=== PATIENT | male | born 1965 | race Two or more races ===

== ENCOUNTER 2022-02-06 11:07 | Inpatient (IN) | payer MEDICARE, MEDICAID ==
[~2022-02-06] VITALS: Ht 167.6 cm; Wt 68.0 kg
[2022-02-06] VITALS (9 sets, daily range): BP systolic 128–163; BP diastolic 78–99
[2022-02-06] MEDS ORDERED: SODIUM CHLORIDE 0.9% 1,000 ML IV ONE ×2 (11:45)
[2022-02-06 12:29] LABS: Basophils # (auto) 0.1 10 ^3/uL (0-0.2); Eosinophils # (auto) 0.1 10 ^3/uL (0-0.8); Monocytes # (auto) 0.4 10 ^3/uL (0-1.3); Nucleated Red Blood Cells % 0.1 %
[2022-02-06 12:32] LABS: Basophils % (auto) 0.8 % (0.0-2.0); Lymphocytes % (auto) 13.5 % (10.0-50.0); Mean Corpuscular Hgb Conc. 32.6 g/dL (32.0-36.0); Mean Corpuscular Volume 70.4 fL (80.0-100.0); Monocytes % (auto) 4.9 % (0.0-12.0); Neutrophils # (auto) 5.8 10 ^3/uL (1.6-8.6); Neutrophils % (auto) 78.8 % (37.0-80.0); Red Blood Cells 2.41 10^6/uL (4.5-5.90); Red Cell Distribution Width 19.6 % (11.8-14.3); White Blood Cell 7.4 10^3/uL (4.4-10.8)
[2022-02-06 12:38] LABS: Hemoglobin 5.5 g/dL (13.5-17.5)
[2022-02-06 12:50] LABS: BUN/Creatinine Ratio 17.8; Calcium 8.1 mg/dL (8.5-10.1); Magnesium 2.4 mg/dL (1.6-2.6); Potassium 5.2 mmol/L (3.5-5.1)
[2022-02-06 12:53] LABS: Bilirubin, Total 0.3 mg/dL (0.2-1.0); Total Protein 8.2 g/dL (6.4-8.2)
[2022-02-06 13:04] LABS: INR 1.21 (0.9-1.15); Partial Thromboplastin Time 35.5 sec (23.6-33.0)
[2022-02-06] MEDS: SODIUM CHLORIDE 0.9% 1,000 ML IV SCH ×2 (16:20→22:46)
[2022-02-06 18:10] LABS: Urine Bacteria FEW /hpf (None Seen); Urine Blood TRACE /uL (Negative); Urine Mucus FEW (None Seen); Urine WBC 4 /hpf (0 - 3)
[2022-02-06 18:12] LABS: Alcohol, Urine < 3.0 mg/dL (0-10); Amphetamine Screen, Urine NEGATIVE (NEGATIVE); Barbiturate Scree,Urine NEGATIVE (NEGATIVE); Benzodiazephine Screen, Urine NEGATIVE (NEGATIVE); Cocaine Screen, Urine NEGATIVE (NEGATIVE); Opiate Scree,Urine NEGATIVE (NEGATIVE); Phencyclidine Screen, Urine NEGATIVE (NEGATIVE)
[2022-02-06 18:32] LABS: Cannabinoid Screen, Urine NEGATIVE (NEGATIVE)
[2022-02-06] MEDS: METOPROLOL TARTRATE 25 MG TAB PO SCH (22:46)
[2022-02-07] MEDS ORDERED: METF-370 PO (01:02)
[2022-02-07] MEDS ORDERED: COLC1TAB3 PO (01:02)
[2022-02-07 05:12] VITALS: BP 143/88
[2022-02-07 05:26] LABS: Basophils # (auto) 0.1 10 ^3/uL (0-0.2); Basophils % (auto) 1.4 % (0.0-2.0); Eosinophils # (auto) 0.2 10 ^3/uL (0-0.8); Eosinophils % (auto) 2.3 % (0.0-7.0); Hematocrit 25.4 % (41.0-53.0); Hemoglobin 8.3 g/dL (13.5-17.5); Lymphocytes # (auto) 0.9 10 ^3/uL (0.4-5.4); Lymphocytes % (auto) 14.1 % (10.0-50.0); Mean Corpuscular Hemoglobin 24.8 pg (28.0-32.0); Mean Corpuscular Hgb Conc. 32.9 g/dL (32.0-36.0); Mean Corpuscular Volume 75.4 fL (80.0-100.0); Monocytes # (auto) 0.3 10 ^3/uL (0-1.3); Monocytes % (auto) 4.9 % (0.0-12.0); Neutrophils % (auto) 77.3 % (37.0-80.0); Nucleated Red Blood Cells % 0.1 %; Red Blood Cells 3.37 10^6/uL (4.5-5.90); White Blood Cell 6.5 10^3/uL (4.4-10.8)
[2022-02-07 05:40] LABS: Potassium 4.9 mmol/L (3.5-5.1)
[2022-02-07 05:44] LABS: Albumin 1.9 g/dL (3.4-5.0); BUN/Creatinine Ratio 18.5
[2022-02-07 05:47] LABS: Bilirubin, Total 0.5 mg/dL (0.2-1.0); Total Protein 7.7 g/dL (6.4-8.2)
[2022-02-07] MEDS: SODIUM CHLORIDE 0.9% 1,000 ML IV SCH (07:55)
[2022-02-07 08:00] VITALS: BP 137/87
[2022-02-07 08:30] VITALS: BP 137/87
[2022-02-07] MEDS: ZINC SULFATE 220mg CAP or TAB PO SCH (10:15)
[2022-02-07] MEDS: METOPROLOL TARTRATE 25 MG TAB PO SCH (10:15)
[2022-02-07 12:40] VITALS: BP 141/87
[2022-02-07 16:20] VITALS: BP 134/80
[2022-02-07] MEDS ORDERED: SODIUM BICARBONATE 50ML VIAL 75 ML in D5W 5% 1,000 ML IV SCH (16:45)
[2022-02-07] MEDS ORDERED: FUROSEMIDE 40 MG/4 ML VIAL IV ONE (16:45)
[2022-02-07] MEDS: DOBUTamine 1000MCG/ML 250 ML IV SCH (18:09)
[2022-02-07 21:44] LABS: Urine Bacteria NONE SEEN /hpf (None Seen); Urine Blood Negative /uL (Negative); Urine WBC 1 /hpf (0 - 3)
[2022-02-07] MEDS: CARVEDILOL 12.5 MG TAB PO SCH (21:56)
[2022-02-07 22:00] VITALS: BP 136/58
[2022-02-07 22:02] LABS: Protein, Urine 190.5 mg/dL (0.0-11.9)
[2022-02-07] MEDS: SODIUM BICARBONATE 50ML VIAL 75 ML in D5W 5% 1,000 ML IV SCH (22:16)
[2022-02-07 22:32] LABS: Creatinine, Urine 35.2 mg/dL (30.0-125.0)
[2022-02-08] VITALS (7 sets, daily range): BP systolic 107–133; BP diastolic 59–77
[2022-02-08] MEDS: SODIUM BICARBONATE 50ML VIAL 75 ML in D5W 5% 1,000 ML IV SCH ×3 (03:58→23:25)
[2022-02-08 09:10] LABS: Basophils # (auto) 0 10 ^3/uL (0-0.2); Basophils % (auto) 0.3 % (0.0-2.0); Eosinophils # (auto) 0.3 10 ^3/uL (0-0.8); Eosinophils % (auto) 3.5 % (0.0-7.0); Hematocrit 23.3 % (41.0-53.0); Hemoglobin 7.7 g/dL (13.5-17.5); Lymphocytes # (auto) 0.9 10 ^3/uL (0.4-5.4); Lymphocytes % (auto) 10.5 % (10.0-50.0); Mean Corpuscular Hemoglobin 24.2 pg (28.0-32.0); Mean Corpuscular Hgb Conc. 33.1 g/dL (32.0-36.0); Mean Corpuscular Volume 73.2 fL (80.0-100.0); Monocytes # (auto) 0.4 10 ^3/uL (0-1.3); Monocytes % (auto) 4.6 % (0.0-12.0); Neutrophils # (auto) 6.7 10 ^3/uL (1.6-8.6); Neutrophils % (auto) 81.1 % (37.0-80.0); Nucleated Red Blood Cells % 0.2 %; Red Blood Cells 3.18 10^6/uL (4.5-5.90); White Blood Cell 8.3 10^3/uL (4.4-10.8)
[2022-02-08 09:11] LABS: Red Cell Distribution Width 21.2 % (11.8-14.3)
[2022-02-08 09:28] LABS: Calcium 6.8 mg/dL (8.5-10.1); Potassium 4.9 mmol/L (3.5-5.1)
[2022-02-08 09:30] LABS: BUN/Creatinine Ratio 19.6
[2022-02-08] MEDS: ZINC SULFATE 220mg CAP or TAB PO SCH (09:50)
[2022-02-08] MEDS: CARVEDILOL 12.5 MG TAB PO SCH ×2 (09:50→22:30)
[2022-02-08] MEDS: DOBUTamine 1000MCG/ML 250 ML IV SCH ×2 (16:00→23:26)
[2022-02-09] MEDS: SODIUM BICARBONATE 50ML VIAL 75 ML in D5W 5% 1,000 ML IV SCH ×2 (02:10→09:06)
[2022-02-09 05:02] LABS: Basophils # (auto) 0 10 ^3/uL (0-0.2); Basophils % (auto) 0.6 % (0.0-2.0); Eosinophils # (auto) 0.3 10 ^3/uL (0-0.8); Eosinophils % (auto) 3.5 % (0.0-7.0); Hematocrit 19.8 % (41.0-53.0); Hemoglobin 7.1 g/dL (13.5-17.5); Lymphocytes # (auto) 0.8 10 ^3/uL (0.4-5.4); Lymphocytes % (auto) 9.8 % (10.0-50.0); Mean Corpuscular Hemoglobin 26.2 pg (28.0-32.0); Mean Corpuscular Hgb Conc. 35.7 g/dL (32.0-36.0); Mean Corpuscular Volume 73.4 fL (80.0-100.0); Monocytes # (auto) 0.5 10 ^3/uL (0-1.3); Monocytes % (auto) 5.7 % (0.0-12.0); Neutrophils # (auto) 6.6 10 ^3/uL (1.6-8.6); Neutrophils % (auto) 80.4 % (37.0-80.0); Nucleated Red Blood Cells % 0.2 %; White Blood Cell 8.2 10^3/uL (4.4-10.8)
[2022-02-09 05:18] VITALS: BP 130/79
[2022-02-09 05:22] LABS: Red Cell Distribution Width 20.9 % (11.8-14.3)
[2022-02-09 05:42] LABS: Calcium 6.4 mg/dL (8.5-10.1); Magnesium 1.9 mg/dL (1.6-2.6); Potassium 4.7 mmol/L (3.5-5.1)
[2022-02-09 05:44] LABS: BUN/Creatinine Ratio 20.6
[2022-02-09 09:00] VITALS: BP 112/56
[2022-02-09] MEDS: ZINC SULFATE 220mg CAP or TAB PO SCH (09:05)
[2022-02-09] MEDS: CARVEDILOL 12.5 MG TAB PO SCH ×2 (09:06→21:36)
[2022-02-09 12:39] VITALS: BP 143/80
[2022-02-09] MEDS ORDERED: FUROSEMIDE 40 MG/4 ML VIAL IV ONE (15:00)
[2022-02-09] MEDS ORDERED: DEXTROSE (50%) 50ML SYRG IV PRN (15:30)
[2022-02-09 17:20] VITALS: BP 118/76
[2022-02-09] MEDS: ACCU-CHEK COMFORT CURVE STRIP VI SCH ×2 (17:35→21:36)
[2022-02-09] MEDS: InsuLIN REG 1unit/0.01ml Soln (100units/ml) SC SCH ×2 (17:37→21:47)
[2022-02-09 22:00] VITALS: BP 124/72
[2022-02-10] VITALS (14 sets, daily range): BP systolic 100–125; BP diastolic 57–82
[2022-02-10] MEDS: InsuLIN REG 1unit/0.01ml Soln (100units/ml) SC SCH ×4 (07:00→22:43)
[2022-02-10] MEDS: ACCU-CHEK COMFORT CURVE STRIP VI SCH ×5 (07:10→22:43)
[2022-02-10 08:25] LABS: BUN/Creatinine Ratio 19.1; Calcium 6.7 mg/dL (8.5-10.1); Potassium 4.7 mmol/L (3.5-5.1)
[2022-02-10] MEDS: ERGOCALCIFEROL 50,000 UNIT(1.25MG) CAP PO SCH (09:15)
[2022-02-10] MEDS: CARVEDILOL 12.5 MG TAB PO SCH ×2 (10:35→22:44)
[2022-02-10] MEDS ORDERED: LIDOCAINE 2%HCL (LOCAL ANESTH.) INJ 10ml MDV ONE (13:26)
[2022-02-10] MEDS ORDERED: fentaNYL CITRATE 100 MCG/2 ML VL ONE (13:37)
[2022-02-10] MEDS ORDERED: HEPARIN SODIUM (PORCINE) 5000 UNITS/ML 1ML VIAL ONE (13:38)
[2022-02-10] MEDS ORDERED: MIDAZOLAM HCL 2MG/2ML 2ml VIAL (1mg/ml) ONE (13:38)
[2022-02-10] MEDS: SODIUM FERR GLUC 62.5MG/5ML 125 MG in SODIUM CHL 0.9% 100 ML IV SCH (15:13)
[2022-02-10] MEDS: DOBUTamine 1000MCG/ML 250 ML IV SCH (15:14)
[2022-02-11] VITALS (8 sets, daily range): BP systolic 103–126; BP diastolic 57–75
[2022-02-11 05:52] LABS: Basophils # (auto) 0 10 ^3/uL (0-0.2); Basophils % (auto) 0.4 % (0.0-2.0); Eosinophils # (auto) 0 10 ^3/uL (0-0.8); Lymphocytes # (auto) 0.4 10 ^3/uL (0.4-5.4); Monocytes # (auto) 0.5 10 ^3/uL (0-1.3); Monocytes % (auto) 6.5 % (0.0-12.0); Neutrophils # (auto) 7.4 10 ^3/uL (1.6-8.6); White Blood Cell 8.4 10^3/uL (4.4-10.8)
[2022-02-11 05:53] LABS: Eosinophils % (auto) 0.4 % (0.0-7.0); Hematocrit 20.6 % (41.0-53.0); Lymphocytes % (auto) 4.7 % (10.0-50.0); Mean Corpuscular Hemoglobin 25.1 pg (28.0-32.0); Mean Corpuscular Hgb Conc. 33.7 g/dL (32.0-36.0); Mean Corpuscular Volume 74.6 fL (80.0-100.0); Red Blood Cells 2.76 10^6/uL (4.5-5.90)
[2022-02-11 05:54] LABS: Red Cell Distribution Width 22.2 % (11.8-14.3)
[2022-02-11 05:58] LABS: Hemoglobin 6.9 g/dL (13.5-17.5)
[2022-02-11 06:00] LABS: Albumin 1.8 g/dL (3.4-5.0); Calcium 6.6 mg/dL (8.5-10.1); Potassium 5.5 mmol/L (3.5-5.1)
[2022-02-11 06:05] LABS: Bilirubin, Total 0.4 mg/dL (0.2-1.0); Total Protein 6.5 g/dL (6.4-8.2)
[2022-02-11] MEDS: InsuLIN REG 1unit/0.01ml Soln (100units/ml) SC SCH ×4 (07:00→22:00)
[2022-02-11] MEDS: ACCU-CHEK COMFORT CURVE STRIP VI SCH ×4 (07:05→23:16)
[2022-02-11] MEDS ORDERED: ACCU-CHEK COMFORT CURVE STRIP VI ONE (07:15)
[2022-02-11] MEDS: CARVEDILOL 12.5 MG TAB PO SCH ×2 (09:28→23:16)
[2022-02-11] MEDS ORDERED: LACTULOSE 20Gm/30ML SOLN PO PRN (11:00)
[2022-02-11] MEDS: guaiFENesin-DM 100/10mg/5ml SYR PO PRN (18:57)
[2022-02-12 05:00] VITALS: BP 131/81
[2022-02-12 05:58] LABS: Basophils # (auto) 0 10 ^3/uL (0-0.2); Eosinophils # (auto) 0.1 10 ^3/uL (0-0.8); Hematocrit 21.2 % (41.0-53.0)
[2022-02-12 06:01] LABS: Basophils % (auto) 0.5 % (0.0-2.0); Hemoglobin 7.2 g/dL (13.5-17.5); Lymphocytes # (auto) 0.6 10 ^3/uL (0.4-5.4); Lymphocytes % (auto) 9.4 % (10.0-50.0); Mean Corpuscular Hemoglobin 26.1 pg (28.0-32.0); Mean Corpuscular Hgb Conc. 34.2 g/dL (32.0-36.0); Mean Corpuscular Volume 76.2 fL (80.0-100.0); Monocytes # (auto) 0.6 10 ^3/uL (0-1.3); Neutrophils # (auto) 5.3 10 ^3/uL (1.6-8.6); Neutrophils % (auto) 79.1 % (37.0-80.0); Nucleated Red Blood Cells % 0.1 %; Red Blood Cells 2.77 10^6/uL (4.5-5.90); White Blood Cell 6.7 10^3/uL (4.4-10.8)
[2022-02-12 06:03] LABS: Red Cell Distribution Width 21.5 % (11.8-14.3)
[2022-02-12 06:10] LABS: Calcium 7.1 mg/dL (8.5-10.1); Potassium 4.1 mmol/L (3.5-5.1)
[2022-02-12 06:12] LABS: BUN/Creatinine Ratio 17.8
[2022-02-12] MEDS: InsuLIN REG 1unit/0.01ml Soln (100units/ml) SC SCH ×4 (06:43→22:00)
[2022-02-12 08:30] VITALS: BP 112/68
[2022-02-12] MEDS: CARVEDILOL 12.5 MG TAB PO SCH ×2 (10:00→21:55)
[2022-02-12] MEDS: ACCU-CHEK COMFORT CURVE STRIP VI SCH ×3 (11:30→21:56)
[2022-02-12 12:30] VITALS: BP 142/79
[2022-02-12] MEDS ORDERED: HEPARIN 1,000 UNITS/ml 1ML VIAL IV PRN (13:15)
[2022-02-12] MEDS: SODIUM FERR GLUC 62.5MG/5ML 125 MG in SODIUM CHL 0.9% 100 ML IV SCH (13:56)
[2022-02-12] MEDS: DOBUTamine 1000MCG/ML 250 ML IV SCH (14:30)
[2022-02-12 17:00] VITALS: BP 132/73
[2022-02-12 18:33] LABS: Hematocrit 23.1 % (41.0-53.0); Hemoglobin 7.7 g/dL (13.5-17.5)
[2022-02-12 22:00] VITALS: BP 136/72
[2022-02-12 22:12] LABS: Hemoglobin 7.2 g/dL (13.5-17.5)
[2022-02-13 05:00] VITALS: BP 130/71
[2022-02-13 05:44] LABS: Eosinophils # (auto) 0.2 10 ^3/uL (0-0.8); Hemoglobin 7.1 g/dL (13.5-17.5); Neutrophils % (auto) 76.1 % (37.0-80.0)
[2022-02-13 05:47] LABS: Basophils # (auto) 0 10 ^3/uL (0-0.2); Basophils % (auto) 0.5 % (0.0-2.0); Eosinophils % (auto) 2.5 % (0.0-7.0); Hematocrit 21.2 % (41.0-53.0); Lymphocytes # (auto) 0.8 10 ^3/uL (0.4-5.4); Lymphocytes % (auto) 11.3 % (10.0-50.0); Mean Corpuscular Hemoglobin 25.8 pg (28.0-32.0); Mean Corpuscular Hgb Conc. 33.5 g/dL (32.0-36.0); Mean Corpuscular Volume 76.9 fL (80.0-100.0); Monocytes # (auto) 0.7 10 ^3/uL (0-1.3); Monocytes % (auto) 9.6 % (0.0-12.0); Neutrophils # (auto) 5.3 10 ^3/uL (1.6-8.6); Red Blood Cells 2.76 10^6/uL (4.5-5.90); White Blood Cell 6.9 10^3/uL (4.4-10.8)
[2022-02-13 05:54] LABS: Albumin 1.5 g/dL (3.4-5.0); Calcium 7.1 mg/dL (8.5-10.1); Potassium 3.7 mmol/L (3.5-5.1)
[2022-02-13 06:00] LABS: BUN/Creatinine Ratio 13.6; Bilirubin, Total 0.3 mg/dL (0.2-1.0); Total Protein 6.2 g/dL (6.4-8.2)
[2022-02-13] MEDS: InsuLIN REG 1unit/0.01ml Soln (100units/ml) SC SCH ×4 (07:00→21:34)
[2022-02-13] MEDS: ACCU-CHEK COMFORT CURVE STRIP VI SCH ×4 (07:02→21:23)
[2022-02-13 08:17] LABS: % Iron Saturation 12.7 % (20-55)
[2022-02-13 08:54] VITALS: BP 128/69
[2022-02-13 09:22] LABS: Hepatitis B Surface Antibody Positive (Negative)
[2022-02-13 10:00] LABS: Hepatitis A Total Antibody Positive (Negative)
[2022-02-13] MEDS: CARVEDILOL 12.5 MG TAB PO SCH ×2 (10:40→21:22)
[2022-02-13] MEDS: SODIUM FERR GLUC 62.5MG/5ML 125 MG in SODIUM CHL 0.9% 100 ML IV SCH (12:21)
[2022-02-13 13:00] VITALS: BP 134/87
[2022-02-13 13:17] LABS: Hepatitis C Antibody Negative (Negative)
[2022-02-13 16:52] VITALS: BP 111/69
[2022-02-13] MEDS: FUROSEMIDE 20 MG/2 ML VIAL IV SCH (18:53)
[2022-02-13 22:00] VITALS: BP 129/81
[2022-02-14 05:00] VITALS: BP 119/69
[2022-02-14] MEDS: FUROSEMIDE 20 MG/2 ML VIAL IV SCH ×2 (05:51→17:45)
[2022-02-14] MEDS: InsuLIN REG 1unit/0.01ml Soln (100units/ml) SC SCH ×4 (06:31→22:06)
[2022-02-14] MEDS: ACCU-CHEK COMFORT CURVE STRIP VI SCH ×4 (06:32→22:02)
[2022-02-14 06:56] LABS: BUN/Creatinine Ratio 14.1; Calcium 7.4 mg/dL (8.5-10.1); Magnesium 2.1 mg/dL (1.6-2.6); Potassium 4.9 mmol/L (3.5-5.1)
[2022-02-14 07:47] LABS: Basophils # (auto) 0 10 ^3/uL (0-0.2); Basophils % (auto) 0.5 % (0.0-2.0); Eosinophils # (auto) 0 10 ^3/uL (0-0.8); Eosinophils % (auto) 0.3 % (0.0-7.0); Hematocrit 23.5 % (41.0-53.0); Hemoglobin 7.8 g/dL (13.5-17.5); Lymphocytes # (auto) 0.6 10 ^3/uL (0.4-5.4); Mean Corpuscular Hemoglobin 25.7 pg (28.0-32.0); Monocytes # (auto) 0.5 10 ^3/uL (0-1.3); Monocytes % (auto) 5.8 % (0.0-12.0); Neutrophils # (auto) 7.6 10 ^3/uL (1.6-8.6); Neutrophils % (auto) 86.4 % (37.0-80.0); Red Blood Cells 3.02 10^6/uL (4.5-5.90); Red Cell Distribution Width 22.1 % (11.8-14.3); White Blood Cell 8.8 10^3/uL (4.4-10.8)
[2022-02-14 07:50] LABS: Mean Corpuscular Volume 77.9 fL (80.0-100.0)
[2022-02-14 08:00] VITALS: BP 121/79
[2022-02-14] MEDS ORDERED: SODIUM CHL 0.9% 1000 ML BAG XX ONE (08:00)
[2022-02-14 09:00] VITALS: BP 121/79
[2022-02-14] MEDS: CARVEDILOL 12.5 MG TAB PO SCH ×2 (10:00→22:02)
[2022-02-14] MEDS: SODIUM FERR GLUC 62.5MG/5ML 125 MG in SODIUM CHL 0.9% 100 ML IV SCH (12:23)
[2022-02-14 13:00] VITALS: BP 143/72
[2022-02-14 16:58] VITALS: BP 127/71
[2022-02-14] MEDS ORDERED: EPOETIN ALFA-EPBX 10,000 UNIT/1ML VIAL SC ONE (21:00)
[2022-02-14 22:00] VITALS: BP 104/64
[2022-02-14] MEDS: guaiFENesin-DM 100/10mg/5ml SYR PO PRN (22:07)
[2022-02-15 05:00] VITALS: BP 117/70
[2022-02-15] MEDS: ACCU-CHEK COMFORT CURVE STRIP VI SCH ×4 (06:26→22:43)
[2022-02-15] MEDS: InsuLIN REG 1unit/0.01ml Soln (100units/ml) SC SCH ×4 (06:26→22:00)
[2022-02-15] MEDS: FUROSEMIDE 20 MG/2 ML VIAL IV SCH ×2 (06:26→18:08)
[2022-02-15 06:46] LABS: Eosinophils # (auto) 0.1 10 ^3/uL (0-0.8); White Blood Cell 7.6 10^3/uL (4.4-10.8)
[2022-02-15 06:48] LABS: Basophils # (auto) 0 10 ^3/uL (0-0.2); Basophils % (auto) 0.6 % (0.0-2.0); Eosinophils % (auto) 1.2 % (0.0-7.0); Hematocrit 21.8 % (41.0-53.0); Hemoglobin 7.4 g/dL (13.5-17.5); Lymphocytes # (auto) 0.9 10 ^3/uL (0.4-5.4); Lymphocytes % (auto) 11.4 % (10.0-50.0); Mean Corpuscular Hemoglobin 26.3 pg (28.0-32.0); Mean Corpuscular Hgb Conc. 33.9 g/dL (32.0-36.0); Mean Corpuscular Volume 77.6 fL (80.0-100.0); Monocytes # (auto) 0.6 10 ^3/uL (0-1.3); Monocytes % (auto) 8.1 % (0.0-12.0); Neutrophils % (auto) 78.7 % (37.0-80.0); Nucleated Red Blood Cells % 0.1 %; Red Blood Cells 2.82 10^6/uL (4.5-5.90)
[2022-02-15 06:56] LABS: Red Cell Distribution Width 21.8 % (11.8-14.3)
[2022-02-15 07:01] LABS: BUN/Creatinine Ratio 12.8; Calcium 7.2 mg/dL (8.5-10.1); Potassium 4.3 mmol/L (3.5-5.1)
[2022-02-15 08:00] VITALS: BP 120/72
[2022-02-15 09:00] VITALS: BP 120/72
[2022-02-15] MEDS: CARVEDILOL 12.5 MG TAB PO SCH ×2 (09:44→22:44)
[2022-02-15] MEDS: SODIUM FERR GLUC 62.5MG/5ML 125 MG in SODIUM CHL 0.9% 100 ML IV SCH (12:34)
[2022-02-15 13:00] VITALS: BP 104/71
[2022-02-15 17:00] VITALS: BP 104/67
[2022-02-15 22:00] VITALS: BP 125/75
[2022-02-16 05:00] VITALS: BP 121/71
[2022-02-16] MEDS ORDERED: SODIUM CHL 0.9% 1000 ML BAG XX ONE (05:15)
[2022-02-16] MEDS: FUROSEMIDE 20 MG/2 ML VIAL IV SCH ×2 (06:00→18:16)
[2022-02-16] MEDS: InsuLIN REG 1unit/0.01ml Soln (100units/ml) SC SCH ×4 (06:55→22:00)
[2022-02-16] MEDS: ACCU-CHEK COMFORT CURVE STRIP VI SCH ×4 (06:56→23:19)
[2022-02-16 09:00] VITALS: BP 148/82
[2022-02-16] MEDS: CARVEDILOL 12.5 MG TAB PO SCH ×2 (09:13→23:19)
[2022-02-16 13:00] VITALS: BP 108/67
[2022-02-16] MEDS: SODIUM FERR GLUC 62.5MG/5ML 125 MG in SODIUM CHL 0.9% 100 ML IV SCH (15:59)
[2022-02-16 17:00] VITALS: BP 110/63
[2022-02-16] MEDS ORDERED: EPOETIN ALFA-EPBX 10,000 UNIT/1ML VIAL SC ONE (21:00)
[2022-02-16 22:00] VITALS: BP 115/62
[2022-02-17 05:00] VITALS: BP 123/74
[2022-02-17] MEDS: FUROSEMIDE 20 MG/2 ML VIAL IV SCH ×2 (06:12→17:51)
[2022-02-17] MEDS: ACCU-CHEK COMFORT CURVE STRIP VI SCH ×3 (06:12→17:24)
[2022-02-17] MEDS: InsuLIN REG 1unit/0.01ml Soln (100units/ml) SC SCH ×3 (06:21→17:00)
[2022-02-17 09:00] VITALS: BP 111/64
[2022-02-17] MEDS: CARVEDILOL 12.5 MG TAB PO SCH (10:21)
[2022-02-17] MEDS: ERGOCALCIFEROL 50,000 UNIT(1.25MG) CAP PO SCH (10:21)
[2022-02-17] MEDS: SODIUM FERR GLUC 62.5MG/5ML 125 MG in SODIUM CHL 0.9% 100 ML IV SCH (12:43)
[2022-02-17 13:00] VITALS: BP 100/57
[2022-02-17 17:00] VITALS: BP 101/56
[2022-02-17 18:06] VITALS: BP 105/67
== END 2022-02-17 19:08 | DRG 673 ==
LOC: EDBD 11:07 → ER 11:07 → TELE 15:12 → TELE-WESTW 21:10
PROVIDERS: ADMIT Internal Medicine; ATTEND Internal Medicine Pulmonary Disease
PROC: 30233N1 Transfusion of Nonautologous Red Blood Cells into Peripheral Vein, Percutaneous Approach (ICD-10-PCS; 2022-02-06)
PROC: B54MZZA Ultrasonography of Right Upper Extremity Veins, Guidance (ICD-10-PCS; 2022-02-07)
PROC: 05HB33Z Insertion of Infusion Device into Right Basilic Vein, Percutaneous Approach (ICD-10-PCS; 2022-02-07)
PROC: 0JH63XZ Insertion of Tunneled Vascular Access Device into Chest Subcutaneous Tissue and Fascia, Percutaneous Approach (ICD-10-PCS; principal; 2022-02-10)
PROC: 02H633Z Insertion of Infusion Device into Right Atrium, Percutaneous Approach (ICD-10-PCS; 2022-02-10)
PROC: B5181ZA Fluoroscopy of Superior Vena Cava using Low Osmolar Contrast, Guidance (ICD-10-PCS; 2022-02-10)
PROC: B548ZZA Ultrasonography of Superior Vena Cava, Guidance (ICD-10-PCS; 2022-02-10)
PROC: 5A1D70Z Performance of Urinary Filtration, Intermittent, Less than 6 Hours Per Day (ICD-10-PCS; 2022-02-11)
PROC: 5A1D70Z Performance of Urinary Filtration, Intermittent, Less than 6 Hours Per Day (ICD-10-PCS; 2022-02-12)
PROC: 5A1D70Z Performance of Urinary Filtration, Intermittent, Less than 6 Hours Per Day (ICD-10-PCS; 2022-02-14)
PROC: 5A1D70Z Performance of Urinary Filtration, Intermittent, Less than 6 Hours Per Day (ICD-10-PCS; 2022-02-16)
DX: N17.9 Acute kidney failure, unspecified (principal); I50.21 Acute systolic (congestive) heart failure; I21.A1 Myocardial infarction type 2; J81.0 Acute pulmonary edema; E43 Unspecified severe protein-calorie malnutrition; I13.2 Hypertensive heart and chronic kidney disease with heart failure and with stage 5 chronic kidney disease, or end stage renal disease; K92.2 Gastrointestinal hemorrhage, unspecified; D64.9 Anemia, unspecified; N18.6 End stage renal disease; Z20.822 Contact with and (suspected) exposure to COVID-19; E11.22 Type 2 diabetes mellitus with diabetic chronic kidney disease; E78.5 Hyperlipidemia, unspecified; I27.20 Pulmonary hypertension, unspecified; K59.00 Constipation, unspecified; N28.1 Cyst of kidney, acquired; Z68.22 Body mass index [BMI] 22.0-22.9, adult; Z79.4 Long term (current) use of insulin; Z83.3 Family history of diabetes mellitus
CPT/HCPCS: 36415; 36558; 71045; 74176; 76775; 76942; 77001; 78582; 80048; 80053; 80061; 80307; 81001; 82010; 82043; 82270; 82306; 82570; 82962; 83036; 83540; 83550; 83735; 83880; 83935; 83970; 84100; 84156; 84300; 84443; 84484; 85014; 85018; 85025; 85045; 85379; 85610; 85730; 86703; 86704; 86706; 86708; 86803; 86850; 86900; 86901; 86920; 87340; 90935; 93005; 93306; 93970; 96360; 97110; 97116; 97163; 97530; 99152; 99153; 99291; G0378; J1642; J1815; J2001; J2250

== ENCOUNTER 2024-04-27 14:27 | Inpatient (IN) | payer OTHER, MEDICAID ==
[~2024-04-27] VITALS: Ht 160 cm; Wt 56.2 kg
[~2024-04-27 14:27] MED LIST: COLC1TAB3 PO; METF-370 PO
[2024-04-27] MEDS: FUROSEMIDE 40 MG/4 ML VIAL IV ONE (14:58)
[2024-04-27 15:08] LABS: Basophils # (auto) 0 10 ^3/uL (0-0.2); Eosinophils # (auto) 0.4 10 ^3/uL (0-0.8); Hematocrit 23.9 % (41.0-53.0); Lymphocytes # (auto) 0.6 10 ^3/uL (0.4-5.4); Monocytes # (auto) 0.4 10 ^3/uL (0-1.3)
[2024-04-27 15:10] LABS: Basophils % (auto) 0.3 % (0.0-2.0); Eosinophils % (auto) 5.9 % (0.0-7.0); Lymphocytes % (auto) 8.4 % (10.0-50.0); Mean Corpuscular Hemoglobin 26.2 pg (28.0-32.0); Mean Corpuscular Hgb Conc. 33.5 g/dL (32.0-36.0); Monocytes % (auto) 5.5 % (0.0-12.0); Neutrophils % (auto) 79.9 % (37.0-80.0); Nucleated Red Blood Cells % 0.1 %; Red Blood Cells 3.06 10^6/uL (4.5-5.90); Red Cell Distribution Width 17.5 % (11.8-14.3); White Blood Cell 7.6 10^3/uL (4.4-10.8)
[2024-04-27 15:25] LABS: Alanine Aminotransferase 27 U/L (7-40); Alkaline Phosphatase 94 U/L (46-116); Anion Gap 21 (5-15); Aspartate Aminotransferase 19 U/L (13-40); BUN/Creatinine Ratio 7.6 (10.0-20.0); Calcium 6.4 mg/dL (8.7-10.4); Carbon Dioxide 11 mmol/L (20-30); Chloride 106 mmol/L (98-107); Glucose 86 mg/dL (74-106); Sodium 138 mmol/L (136-145)
[2024-04-27 15:26] LABS: Bilirubin, Total 0.3 mg/dL (0.2-1.0); Total Protein 7.4 g/dL (5.7-8.2)
[2024-04-27 15:38] LABS: Blood Urea Nitrogen 139 mg/dL (9-23)
[2024-04-27] MEDS: ALBUTEROL SULF 2.5 MG/0.5ML(0.5%) NEB SOLN NEB ONE (16:20)
[2024-04-27] MEDS: InsuLIN REG 1unit/0.01ml Soln (100units/ml) IV ONE (16:30)
[2024-04-27] MEDS: SODIUM ZIRCONIUM CYCL 10 GM PAK PO ONE (16:35)
[2024-04-27] MEDS: DEXTROSE (50%) 50ML SYRG IV ONE (16:36)
[2024-04-27] MEDS ORDERED: DOCUSATE SOD 100 MG CAP PO PRN (16:45)
[2024-04-27] MEDS ORDERED: HYDROcodone-ACET 5/325MG TAB PO PRN (16:45)
[2024-04-27] MEDS ORDERED: ONDANSETRON HCL 4 MG/2 ML VIAL IV PRN (16:45)
[2024-04-27] MEDS ORDERED: ACETAMINOPHEN 325 MG TAB PO PRN (16:45)
[2024-04-27] MEDS: CALCIUM GLUC 1,000mg/50ml-NS 50 ML IV ONE (16:47)
[2024-04-27] MEDS: ACCU-CHEK COMFORT CURVE STRIP VI SCH (17:39)
[2024-04-27] MEDS: InsuLIN REG 1unit/0.01ml Soln (100units/ml) SC SCH (17:41)
[2024-04-27] MEDS: SODIUM BICARB 8.4% 50Meq/50ml SYR INJ IV ONE (17:46)
[2024-04-27 19:50] LABS: Chloride 106 mmol/L (98-107); Potassium 4.8 mmol/L (3.5-5.1); Sodium 141 mmol/L (136-145)
[2024-04-27 19:51] LABS: Anion Gap 22 (5-15); Carbon Dioxide 13 mmol/L (20-30)
[2024-04-27 19:52] LABS: Calcium 6.6 mg/dL (8.7-10.4)
[2024-04-27 19:53] VITALS: PULSE 103; RESP 18; O2SAT 98
[2024-04-27 19:56] VITALS: BP 159/70; PULSE 103; RESP 18; TEMP 98.9; O2SAT 98
[2024-04-27 19:56] LABS: Glucose 66 mg/dL (74-106)
[2024-04-27 19:57] LABS: BUN/Creatinine Ratio 7.5 (10.0-20.0)
[2024-04-27 20:04] LABS: Blood Urea Nitrogen 136 mg/dL (9-23)
[2024-04-27] MEDS: SODIUM CHLOR 0.9% PF (SALINE LOCK) 10ML VIAL/SYR IV SCH (21:52)
[2024-04-27 22:00] VITALS: BP 160/93; PULSE 100; RESP 14; TEMP 98.6; O2SAT 98
[2024-04-28] VITALS: BP 144/75; PULSE 84; RESP 13; TEMP 98.8; O2SAT 98
[2024-04-28 00:46] LABS: Chloride 106 mmol/L (98-107); Potassium 5.3 mmol/L (3.5-5.1); Sodium 140 mmol/L (136-145)
[2024-04-28 00:47] LABS: Anion Gap 20 (5-15); Calcium 6.3 mg/dL (8.7-10.4); Carbon Dioxide 14 mmol/L (20-30)
[2024-04-28 00:52] LABS: BUN/Creatinine Ratio 6.8 (10.0-20.0); Glucose 77 mg/dL (74-106)
[2024-04-28 00:56] LABS: Blood Urea Nitrogen 125 mg/dL (9-23)
[2024-04-28 02:15] VITALS: BP 164/69; PULSE 88; RESP 22; TEMP 98; O2SAT 99
[2024-04-28 04:19] VITALS: BP 123/61; PULSE 67; RESP 15; TEMP 98.6; O2SAT 98
[2024-04-28 06:14] VITALS: BP 136/84; PULSE 76; RESP 16; TEMP 98.8; O2SAT 100
[2024-04-28 08:00] VITALS: O2SAT 97
[2024-04-28 08:40] LABS: Chloride 104 mmol/L (98-107); Sodium 136 mmol/L (136-145)
[2024-04-28 08:41] LABS: Anion Gap 21 (5-15); Carbon Dioxide 11 mmol/L (20-30)
[2024-04-28 08:46] LABS: BUN/Creatinine Ratio 6.4 (10.0-20.0); Glucose 106 mg/dL (74-106)
[2024-04-28 08:48] LABS: Blood Urea Nitrogen 117 mg/dL (9-23); Calcium 5.9 mg/dL (8.7-10.4); Potassium 7.2 mmol/L (3.5-5.1)
[2024-04-28] MEDS: SODIUM BICARB 8.4% 50Meq/50ml SYR INJ IV ONE (09:45)
[2024-04-28] MEDS: CALCIUM GLUC 1,000mg/50ml-NS 50 ML IV ONE (09:56)
[2024-04-28] MEDS: DEXTROSE (50%) 50ML SYRG IV ONE (09:57)
[2024-04-28] MEDS: InsuLIN REG 1unit/0.01ml Soln (100units/ml) IV ONE (09:57)
[2024-04-28] MEDS: DEXTROSE (50%) 50ML SYRG IV PRN (17:33)
[2024-04-28 19:45] VITALS: O2SAT 100
[2024-04-29 03:13] VITALS: BP 152/82; PULSE 73; RESP 17; TEMP 98; O2SAT 100
[2024-04-29 03:41] VITALS: BP 145/89; PULSE 65; PULSE 86; RESP 16; RESP 18; TEMP 98.2; O2SAT 98
[2024-04-29 05:00] VITALS: BP_SYST 145; BP_SYST 170; BP_DIAS 84; BP_DIAS 86; PULSE 75; RESP 17; TEMP 98.2; O2SAT 96
[2024-04-29] MEDS ORDERED: SODIUM CHL 0.9% 1000 ML BAG XX ONE (07:00)
[2024-04-29 08:00] VITALS: PULSE 75
[2024-04-29 09:06] VITALS: BP 177/90; PULSE 77; RESP 17; TEMP 97.6; O2SAT 94
[2024-04-29 11:50] LABS: Basophils # (auto) 0 10 ^3/uL (0-0.2); Basophils % (auto) 0.5 % (0.0-2.0); Eosinophils # (auto) 0.4 10 ^3/uL (0-0.8); Hematocrit 31.9 % (41.0-53.0); Hemoglobin 10.8 g/dL (13.5-17.5); Lymphocytes # (auto) 0.5 10 ^3/uL (0.4-5.4); Mean Corpuscular Hemoglobin 26.2 pg (28.0-32.0); Mean Corpuscular Hgb Conc. 33.7 g/dL (32.0-36.0); Mean Corpuscular Volume 77.6 fL (80.0-100.0); Monocytes # (auto) 0.3 10 ^3/uL (0-1.3); Monocytes % (auto) 5.3 % (0.0-12.0); Neutrophils # (auto) 5.1 10 ^3/uL (1.6-8.6); Neutrophils % (auto) 80.2 % (37.0-80.0); Nucleated Red Blood Cells % 0.1 %; Red Blood Cells 4.12 10^6/uL (4.5-5.90); Red Cell Distribution Width 17.3 % (11.8-14.3); White Blood Cell 6.4 10^3/uL (4.4-10.8)
[2024-04-29 11:59] LABS: Anion Gap 8 (5-15); Calcium 8.7 mg/dL (8.7-10.4); Carbon Dioxide 31 mmol/L (20-30); Chloride 99 mmol/L (98-107); Potassium 3.7 mmol/L (3.5-5.1); Sodium 138 mmol/L (136-145)
[2024-04-29 12:05] LABS: BUN/Creatinine Ratio 4.6 (10.0-20.0); Blood Urea Nitrogen 20 mg/dL (9-23); Glucose 192 mg/dL (74-106)
[2024-04-29 13:00] VITALS: BP 146/80; PULSE 87; RESP 16; TEMP 97.8; O2SAT 100
[2024-04-29] MEDS ORDERED: EPOETIN ALFA-EPBX 10,000 UNIT/1ML VIAL SC ONE (21:00)
== END 2024-04-29 16:46 | disposition home or self-care (01) | DRG 640 ==
LOC: ER 14:27 → EDBD 14:27 → TELE 16:45 → TELE-WESTW 04-29 03:13
PROVIDERS: ADMIT Internal Medicine; ATTEND Internal Medicine Pulmonary Disease
PROC: 5A1D70Z Performance of Urinary Filtration, Intermittent, Less than 6 Hours Per Day (ICD-10-PCS; principal; 2024-04-28)
PROC: 5A1D70Z Performance of Urinary Filtration, Intermittent, Less than 6 Hours Per Day (ICD-10-PCS; 2024-04-29)
DX: E87.5 Hyperkalemia (principal); N18.6 End stage renal disease; I12.0 Hypertensive chronic kidney disease with stage 5 chronic kidney disease or end stage renal disease; N25.81 Secondary hyperparathyroidism of renal origin; E11.22 Type 2 diabetes mellitus with diabetic chronic kidney disease; D64.9 Anemia, unspecified; I48.0 Paroxysmal atrial fibrillation; E87.20 Acidosis, unspecified; E83.39 Other disorders of phosphorus metabolism; Z99.2 Dependence on renal dialysis; Z91.199 Patient's noncompliance with other medical treatment and regimen due to unspecified reason; Z83.3 Family history of diabetes mellitus; Z79.4 Long term (current) use of insulin
CPT/HCPCS: 36415; 71045; 80048; 80053; 82962; 84132; 85025; 87081; 90935; 93005; 94640; 96374; 99291; G0378; J1642; J1815